=== PATIENT | male | born 1955 | race Caucasian/White ===

== ENCOUNTER 2018-07-17 05:47 | Inpatient (IN) | payer OTHER, BC ==
[2018-07-17] MEDS ORDERED: MIDAZOLAM HCL 2 MG/2 ML SINGLE DOSE VIAL ONE (06:32)
[2018-07-17] MEDS ORDERED: BUPIVACAINE LIPOSOME/PF (EXPAREL) 266 MG/20 ML VIAL ONE (06:33)
[2018-07-17] MEDS ORDERED: SODIUM CHLORIDE 0.9% P/F 10 ML VIAL IJ ONE ×2 (06:33→07:11)
[2018-07-17] MEDS ORDERED: BUPIVACAINE HCL/PF (5 MG/ML) 30 ML VIAL IJ ONE (06:33)
[2018-07-17] MEDS ORDERED: GABAPENTIN 300 MG CAPSULE (FP) ONE (06:41)
[2018-07-17] MEDS ORDERED: oxyCODONE HCL 10 MG SUSTAINED ACTING TABLET ONE (06:41)
[2018-07-17] MEDS ORDERED: CELECOXIB 200 MG CAPSULE ONE (06:42)
[2018-07-17] MEDS ORDERED: TRANEXAMIC ACID 1000 MG/10 ML VIAL IVPUSH ONE (06:44)
[2018-07-17] MEDS ORDERED: CEFAZOLIN 2 GM in DEXTROSE 5%-WATER - 50 ML IVPB ONE (06:44)
[2018-07-17] MEDS: oxyCODONE HCL 10 MG SUSTAINED ACTING TABLET PO ONE ×2 (06:45→11:32)
[2018-07-17] MEDS: GABAPENTIN 300 MG CAPSULE (FP) PO ONE ×2 (06:45→11:32)
[2018-07-17] MEDS: CELECOXIB 200 MG CAPSULE PO ONE ×2 (06:45→11:32)
[2018-07-17 07:02] VITALS: BMI 36.8
[2018-07-17] MEDS ORDERED: VANCOMYCIN 1,000 MG VIAL (RESTRICTED TO ID ONLY) ONE (07:05)
[2018-07-17] MEDS ORDERED: ceFAZolin SODIUM 1 GM VIAL ONE ×3 (07:05→08:30)
[2018-07-17] MEDS ORDERED: ONDANSETRON 4 MG/2 ML VIAL ONE (07:11)
[2018-07-17] MEDS ORDERED: BUPIVACAINE HCL/PF 0.5% (5MG/ML) 10 ML VIAL ONE (07:15)
[2018-07-17] MEDS ORDERED: DEXMEDETOMIDINE HCL 200 MCG/2 ML IVPB ONE (07:32)
[2018-07-17] MEDS ORDERED: MAG HYDROX/AL HYDROX/SIMETH 30 ML UNIT-DOSE CUP PO PRN (07:56)
[2018-07-17] MEDS ORDERED: MAGNESIUM HYDROX 2400MG/30ML ORAL SUSPENSION 30 ML CUP PO PRN (07:56)
--- NOTE | 2018-07-17 07:59 | HP ---
Satellite [facility] - Chief Complaint Chief Complaint: right knee pain - Past Medical History Allergies/Adverse Reactions: Allergies Allergy/AdvReac Type Severity Reaction Status Date / Time No Known Allergies Allergy Verified 07/09/18 09:41 - Current Medications Current Medications: Home Medications Medication Instructions Recorded Aspirin [ASA -] 81 mg PO DAILY 07/09/18 Calcium Carbonate [Calcium] 500 mg PO DAILY 07/09/18 Cholecalciferol (Vitamin D3) 1,000 unit PO DAILY 07/09/18 [Vitamin D3] Ferrous Sulfate 325 mg PO DAILY 07/09/18 Fluticasone/Vilanterol [Breo 1 each IH DAILY 07/09/18 Ellipta 100-25 Mcg INH] Metoprolol Succinate [Toprol Xl] 25 mg PO BID 07/09/18 Multivitamin [Multiple Vitamins] 1 each PO DAILY 07/09/18 Rosuvastatin [Crestor -] 5 mg PO HS 07/09/18 Satellite Physical Exam - Physical Examination Vital Signs: Vital Signs Period Temp Pulse Resp BP Sys/Zuluaga Pulse Ox Last 24 Hr 98.4 F 69 18 112/65 General Appearance: Well Nourished, Well Developed, Alert & Oriented x3 ENT: Clear Lung: Normal air movement Heart: Regular rate & rhythm Extremities: Other (right knee- + swelling, + ttp, decr rom, nvi xrays show grade 4 tricompartmental djd) Neurological: Intact, Alert, Oriented Satellite Impression/Plan - Impression/Plan Impression: right knee djd Operative Procedure: right tomás tkr Date to be Performed: 07/17/18
[2018-07-17] MEDS ORDERED: LACTATED RINGERS SOLUTION 1,000 ML IV SCH (08:00)
[2018-07-17] MEDS ORDERED: ePHEDrine SULFATE 50 MG/1 ML AMPULE ONE (08:34)
[2018-07-17] MEDS ORDERED: oxyCODONE HCL 5 MG TABLET PO PRN (09:11)
[2018-07-17] MEDS ORDERED: VANCOMYCIN 1,000 MG VIAL (RESTRICTED TO ID ONLY) IVPB ONE (09:44)
[2018-07-17] MEDS ORDERED: GABAPENTIN 300 MG CAPSULE (FP) PO SCH (10:00)
[2018-07-17] MEDS ORDERED: oxyCODONE HCL 10 MG SUSTAINED ACTING TABLET PO SCH (10:00)
--- NOTE | 2018-07-17 10:11 | OP ---
Operative Note - Note: Operative Date: 07/17/18 (alec) Pre-Operative Diagnosis: right knee djd Operation: right tomás tkr Post-Operative Diagnosis: Same as Pre-op Surgeon: Tyler Reina Manager Of Employee Relations: Earle Brooks Anesthesiologist/IT SUPPORT MANAGER: Rui Miranda Anesthesia: Spinal, Local Specimens Removed: bone fragments Estimated Blood Loss (mls): 200 Operative Report Dictated: Yes
[2018-07-17] MEDS: PANTOPRAZOLE 40 MG TABLET (FP) PO SCH (11:33)
[2018-07-17] MEDS: MULTIVITAMINS (DAILY MVI) TABLET (FP) PO SCH (11:33)
[2018-07-17] MEDS: SENNOSIDES/DOCUSATE COMBO (SENNA PLUS) TABLET (UD) PO SCH ×2 (11:33→22:09)
[2018-07-17] MEDS: FERROUS SO4 325 MG TABLET (FP) PO SCH (11:33)
[2018-07-17] MEDS: metoPROLOL SUCCINATE 25 MG TAB.SR.24H (FP) PO SCH ×2 (11:34→22:10)
[2018-07-17] MEDS ORDERED: ACETAMINOPHEN 325 MG TABLET (FP) ONE (11:42)
[2018-07-17] MEDS: ACETAMINOPHEN 325 MG TABLET (FP) PO SCH ×4 (11:53→23:55)
[2018-07-17] MEDS: oxyCODONE HCL 5 MG TABLET PO PRN ×3 (13:50→23:56)
[2018-07-17] MEDS: CEFAZOLIN 2 GM/D5W 2 GM/50 ML ML IVPB SCH ×2 (15:39→23:56)
--- NOTE | 2018-07-17 17:55 | OP ---
DATE OF OPERATION: 07/17/2018 PREOPERATIVE DIAGNOSIS: Degenerative joint disease, right knee. POSTOPERATIVE DIAGNOSIS: Degenerative joint disease, right knee. PROCEDURE: Right total knee replacement with robotic-assisted navigation (MAKOplasty). SURGICAL ATTENDING: Tyler Reina MD STATISTICAL METHODS PROFESSOR: ROSA MARIA Lamar ANESTHESIA: Regional and spinal. CLOSURE: A Triathlon Press-Fit knee system with an 8 femur, a 7 tibia, a 9 polyethylene, a 38 patella; No. 1 Vicryl, fascia; 0 and 2-0 for subcutaneous; and 3-0 Monocryl subcuticular with skin glue for skin; 4-0 undyed Vicryl for pin sites. ESTIMATED BLOOD LOSS: Approximately 100 mL. COMPLICATIONS: None. CONDITION: To recovery room in stable condition. DESCRIPTION OF OPERATIVE PROCEDURE: Patient was taken to the operating room on July 17, 2018. Regional and spinal anesthesia was administered by the anesthesiologist. IV Kefzol was administered prophylactically prior to the case as well as TXA. The right lower extremity was prepped and draped in the usual sterile fashion. The midline 10- to 12-cm longitudinal incision was made. Hemostasis was achieved with Bovie cautery. Sharp dissection was carried down to the extensor mechanism which was perform the procedure. Medial parapatellar arthrotomy was then performed, leaving a cuff of tissue for later closure. The patella was inverted and the knee was flexed up. The fat pad was excised. Subperiosteal dissection was done on the anteromedial proximal tibia until the knee was able to be brought forward. This was facilitated by taking the ACL, PCL and medial and lateral menisci. Checkpoints were placed in both the femur and in the tibia. Two parallel threaded pins were drilled superior to the knee joint through the already made incision from anterior to posterior just going through the anterior cortex but just engaging but not going through the posterior cortex. Two threaded pins were drilled through 2 small stab incisions in parallel fashion 1 handbreadth below the tibial tubercle through the anterior cortex of the tibia and engaging but not going through the posterior cortex. Both sets of pins were attached to navigation arrays for the ABNER system. The knee was then registered with the navigation system with center of rotation of the hip, medial and lateral malleoli and multiple sites both on the tibia and on the femur. Confirmation of excellent registration was confirmed by "popping the bubbles." At this time, the knee was thoroughly inspected to remove all osteophytes around the knee. The knee was then tensioned in varus/valgus at both full extension and at 90 degrees of flexion to ascertain our gaps. The virtual position of the components was optimized to ensure equal gaps throughout the range of motion. Once this was performed, the robot was brought into the field, was registered. The bone was cut as per the specifications on both the tibia and on the femur. The box cuts were then made as well. Excellent trial stability was obtained on the femur. The tibial baseplate was allowed to "find itself" and then was clipped into place. Confirmation of excellent external rotation of that component was confirmed by the navigation device as well.The patella was calibered for thickness and cut at the appropriate level. The appropriate lollipop was used to drill 3 holes in the patella and a trial asymmetric patellar button was applied. The knee was taken through a range of motion and found to have excellent stability from full extension to full flexion with excellent tracking of the patella. The trial components were then removed. The lug holes were drilled in the femur. The cementless keel was punched in the tibia. The real Press-Fit components were malleted into place, first with the tibia and then with the femur, and then the patella was crimped into place as well. The real polyethylene liner was then clipped into place. Range of motion, stability and tracking were as described earlier. The knee was thoroughly irrigated with copious amounts of irrigation. Vancomycin powder was placed inside the joint. The medial parapatellar arthrotomy was then closed using No. 1 Vicryl interrupted suture. Post closure of the arthrotomy, the knee was taken through a range of motion and found to have no undue tension on the repair. The subcutaneous was then pulse antibiotic irrigated, closed with 0 and 2-0 Vicryl and 3-0 Monocryl subcuticular with skin glue for the skin. Prior to closure, the checkpoints were removed as were the threaded pins. The tibial pin sites were closed with 4-0 undyed Vicryl. A sterile pressure Aquacel dressing was applied. No tourniquet was used during the case. The total blood loss was approximately 100 mL. No complication. Patient was transferred to recovery in stable condition. Fercho [id number]
[2018-07-17] MEDS: ROSUVASTATIN CA 5 MG TABLET (FP) PO SCH (22:08)
[2018-07-17] MEDS: GABAPENTIN 300 MG CAPSULE (FP) PO SCH (22:09)
[2018-07-17] MEDS: oxyCODONE HCL 10 MG SUSTAINED ACTING TABLET PO SCH (22:09)
[2018-07-18] MEDS: ACETAMINOPHEN 325 MG TABLET (FP) PO SCH ×4 (06:12→23:34)
[2018-07-18] MEDS: oxyCODONE HCL 5 MG TABLET PO PRN (06:13)
[2018-07-18] MEDS: ASPIRIN 325 MG TABLET PO SCH (08:10)
--- NOTE | 2018-07-18 08:30 | PN ---
Progress Note (short form) - Note Progress Note: Ortho Pt seen and examined s/p right tomás tkr pod #1 Selected Entries 07/18/18 06:42 Temperature 97.8 F Pulse Rate 63 Respiratory 18 Rate Blood Pressure 127/61 Laboratory Tests 07/18/18 07:42 WBC Pending Hgb Pending Hct Pending Plt Count Pending Dressing c/d/i, calf soft, nt rom 0-30, nvi a/p PT dvt ppx pain control d/c home tomorrow if stable
[2018-07-18 08:58] LABS: HEMATOCRIT 33.5 % (35.4-49); HEMOGLOBIN 11.2 GM/dl (11.7-16.9); MCH 31.3 pg (25.7-33.7); MCHC 33.6 g/dl (32.0-35.9); MEAN PLT VOLUME 9.2 fl (7.5-11.1); PLATELET COUNT 159 K/MM3 (134-434); RDW 12.1 % (11.9-15.9); WHITE BLOOD COUNT 9.2 K/mm3 (4.0-10.8)
[2018-07-18] MEDS: ONDANSETRON 4 MG/2 ML VIAL IVPUSH PRN (09:20)
[2018-07-18] MEDS: metoPROLOL SUCCINATE 25 MG TAB.SR.24H (FP) PO SCH ×2 (09:21→21:31)
[2018-07-18] MEDS: oxyCODONE HCL 10 MG SUSTAINED ACTING TABLET PO SCH ×2 (09:21→21:30)
[2018-07-18] MEDS: SENNOSIDES/DOCUSATE COMBO (SENNA PLUS) TABLET (UD) PO SCH ×2 (09:21→21:31)
[2018-07-18] MEDS: GABAPENTIN 300 MG CAPSULE (FP) PO SCH ×2 (09:21→21:30)
[2018-07-18] MEDS: MULTIVITAMINS (DAILY MVI) TABLET (FP) PO SCH (09:21)
[2018-07-18] MEDS: FERROUS SO4 325 MG TABLET (FP) PO SCH (09:21)
[2018-07-18] MEDS: PANTOPRAZOLE 40 MG TABLET (FP) PO SCH (09:21)
--- NOTE | 2018-07-18 12:44 | PN ---
Progress Note (short form) - Note Progress Note: Anesthesia post op note POD#1, S/p right total knee arthroplasty under Spinal and regional anesthesia. VSS. Pain 05/20. PT. No apparent post anesthesia complications. Signed off.
[2018-07-18] MEDS: ROSUVASTATIN CA 5 MG TABLET (FP) PO SCH (21:30)
[2018-07-19] MEDS: ACETAMINOPHEN 325 MG TABLET (FP) PO SCH ×2 (05:50→12:55)
[2018-07-19] MEDS: ASPIRIN 325 MG TABLET PO SCH (07:34)
[2018-07-19 08:36] LABS: HEMATOCRIT 33.3 % (35.4-49); HEMOGLOBIN 11.1 GM/dl (11.7-16.9); MCH 31.4 pg (25.7-33.7); MCHC 33.4 g/dl (32.0-35.9); PLATELET COUNT 157 K/MM3 (134-434); RBC 3.55 M/mm3 (4.00-5.60); RDW 12.3 % (11.9-15.9); WHITE BLOOD COUNT 11.1 K/mm3 (4.0-10.8)
[2018-07-19] MEDS: FERROUS SO4 325 MG TABLET (FP) PO SCH (09:01)
[2018-07-19] MEDS: PANTOPRAZOLE 40 MG TABLET (FP) PO SCH (09:01)
[2018-07-19] MEDS: MULTIVITAMINS (DAILY MVI) TABLET (FP) PO SCH (09:01)
[2018-07-19] MEDS: SENNOSIDES/DOCUSATE COMBO (SENNA PLUS) TABLET (UD) PO SCH (09:01)
[2018-07-19] MEDS: oxyCODONE HCL 10 MG SUSTAINED ACTING TABLET PO SCH (09:01)
[2018-07-19] MEDS: GABAPENTIN 300 MG CAPSULE (FP) PO SCH (09:01)
[2018-07-19] MEDS: metoPROLOL SUCCINATE 25 MG TAB.SR.24H (FP) PO SCH (09:01)
--- NOTE | 2018-07-19 09:53 | PN ---
Progress Note (short form) - Note Progress Note: Ortho Pt seen and examined s/p right tomás tkr pod #2 Selected Entries 07/19/18 06:00 Temperature 98.8 F Pulse Rate 70 Respiratory 18 Rate Blood Pressure 109/59 L Laboratory Tests 07/19/18 07:40 WBC 11.1 H Hgb 11.1 L Hct 33.3 L Plt Count 157 Dressing c/d/i, calf soft, nt rom 0-30, nvi a/p PT dvt ppx pain control d/c home today f/u in 1 week
--- NOTE | 2018-07-19 09:54 | DS ---
Physical Examination Vital Signs: Vital Signs Temperature 98.8 F 07/19/18 06:00 Pulse Rate 70 07/19/18 06:00 Respiratory Rate 18 07/19/18 09:09 Blood Pressure 109/59 L 07/19/18 06:00 O2 Sat by Pulse Oximetry (%) 98 07/19/18 06:00 Labs: CBC, BMP 07/19/18 07:40 Discharge Summary Reason For Visit: OSTEOARTHRITIS Procedures: Principal: right tkr Hospital Course: admitted for elective right tomás tkr, uneventful post-op, stable for d/c Condition: Good - Instructions Diet, Activity, Other Instructions: Post-op Instructions-Total Knee Replacement Call the office for a follow-up appointment in 1 week - [phone] Aspirin 325mg daily for 6 weeks. Pain medication was sent into your pharmacy. Apply Graduated Compression Stockings (TEDs) to both lower extremities- remove daily for hygiene ONLY Apply Sequential Compression Device (SCDs) to both Lower extremities remove for PT and hygiene ONLY Apply cold packs to affected area for 15 minutes every 2 hours. Physical Therapist will come to your home for the first 5 days. You will be set up with outpatient PT at your first post-operative visit. Patient may ambulate as tolerated-encourage self care (at least every 2-3 hours while awake) with walker or cane Maintain Aquacel (waterproof) dressing to operative wound (will be removed by surgeon at first office visit) Shower with Aquacel dressing in place-if Aquacel integrity compromised, remove and apply dry sterile dressing and notify Orthopedist. DO NOT SHOWER unless Orthopedists approves without Aquacel dressing CONTACT THE OFFICE FOR ANY CHANGE IN YOUR CONDITION (for example-fever greater than 102 degrees, excessive bleeding from operative site, purulent drainage, severe swelling or pain) GO TO THE EMERGENCY ROOM IF THERE IS A MEDICAL EMERGENCY Knee Precautions: * Keep a rolled towel under affected heel while in bed or chair (to keep knee in extension) * Keep affected leg elevated except during mealtimes * DO NOT PLACE PILLOW UNDER AFFECTED KNEE * If you have any questions, please do not hesitate to call the office - [phone]. Referrals: Tyler Reina MD [Staff Physician] - Disposition: VNS/HOME HEALTH CARE - Home Medications Comprehensive Discharge Medication List: Ambulatory Orders Aspirin [ASA -] 81 mg PO DAILY 07/09/18 Calcium Carbonate [Calcium] 500 mg PO DAILY 07/09/18 Cholecalciferol (Vitamin D3) [Vitamin D3] 1,000 unit PO DAILY 07/09/18 Ferrous Sulfate 325 mg PO DAILY 07/09/18 Fluticasone/Vilanterol [Breo Ellipta 100-25 Mcg INH] 1 each IH DAILY 07/09/18 Metoprolol Succinate [Toprol Xl] 25 mg PO BID 07/09/18 Multivitamin [Multiple Vitamins] 1 each PO DAILY 07/09/18 Rosuvastatin [Crestor -] 5 mg PO HS 07/09/18 Aspirin [ASA -] 325 mg PO DAILY@0800 tablet 07/17/18 Oxycodone HCl/Acetaminophen [Percocet 5-325 mg Tablet -] 1 - 2 tab PO Q6H #50 tab MDD 8 07/17/18
[2018-07-19 10:43] VITALS: BP 118/47; PULSE 68; TEMP 97.6
[2018-07-19] MEDS: ONDANSETRON 4 MG/2 ML VIAL IVPUSH PRN (10:59)
--- NOTE | 2018-07-24 13:05 | PATH ---
Surgical Pathology Report Patient Name: KRYSTAL GAYTAN Med. Rec. #: [id number] /Age/Gender: 1955 (Age: 63) / M Account: [id number] Location: [facility] MED-SURG Taken: 07/17/2018 Received: 07/17/2018 Reported: 07/23/2018 Physicians: Tyler Reina M.D. Specimen(s) Received RIGHT KNEE BONES Clinical History Osteoarthritis right knee Final Diagnosis BONE, KNEE, RIGHT, TOTAL KNEE REPLACEMENT MAKOPLASTY: BONE WITH DEGENERATIVE JOINT DISEASE, DENSE FIBROCONNECTIVE TISSUE, AND REACTIVE SYNOVIUM. Electronically Signed Vannesa King M.D. Gross Description Received in formalin labeled "right knee bone," is a 7.0 x 6.0 x 4.0 cm aggregate of multiple portions of bone and attached 2 x 2 x 1 cm soft tissue, consistent with knee bones. There are multiple foci of eburnation present. The largest focus measures 1.6 cm in greatest dimension. The remaining articular surfaces are walker-yellow and diffusely granular. The underlying trabecular bone is yellow and hard. Broom Bundler sections are submitted in one cassette, following decalcification. BRYAN/07/19/2018 tracy/07/19/2018
== END 2018-07-19 13:14 | disposition home health service (06) | DRG 470 ==
LOC: FM/S 05:47
PROVIDERS: ADMIT Orthopaedic Surgery; ATTEND Orthopaedic Surgery
PROC: 8E0Y0CZ Robotic Assisted Procedure of Lower Extremity, Open Approach (ICD-10-PCS; 2018-07-17)
PROC: 0SRC0JA Replacement of Right Knee Joint with Synthetic Substitute, Uncemented, Open Approach (ICD-10-PCS; principal; 2018-07-17 08:40)
DX: M17.11 Unilateral primary osteoarthritis, right knee (principal); I10 Essential (primary) hypertension
CPT/HCPCS: 36415; 73560-TC-RT-FY; 85027; 87389; 88304-TC; 88311-TC; 94760; 97116-GP; 97163-GP